=== PATIENT | female | born 1935 | race Caucasian/White ===

== ENCOUNTER 2022-02-08 07:39 | Day surgery (SDC) | payer OTHER, SELFPAY ==
[2022-02-02 10:46] VITALS: BMI 30.1
--- NOTE | 2022-02-04 12:50 | MHC.SHP ---
Pre-Procedural Eval Section A Date of Service: 02/04/22 The patient is an INPATIENT: No Changes since office visit: No Cold of Flu in the past 2 weeks, No New Medical Problems, No Changes in Medication and No Patient answered all questions The History & Physical has been completed within 30 days and I have reviewed it.: Yes Section B Chief Complaint: Age-related nuclear cataract, left eye Allergies: Allergies Allergy/AdvReac Type Severity Reaction Status Date / Time egg [EGG] Allergy Intermediate VOMITING Unverified 05/08/20 15:53 Penicillins [PENICILLINS] Allergy Intermediate RASH Unverified 05/08/20 15:53 Plan Diagnosis/Plan: Unchanged I have reviewed the history and physical and performed a pertinent physical examination on my patient. No changes have occurred unless specified.
--- NOTE | 2022-02-05 11:20 | P.CONAN_ITS ---
Documented by User: Denise Rojas NP 02/05/22 11:23 HPI - Anesthesia Eval Consult details Narrative: 86yo F for Left Cataract Extraction IOL Insertion PCP cleared No previous cataract on record [facility] Past Medical History Medical History (Updated 12/10/21 @ 08:45 by Alisa Matthews, [place]) Anemia CHF (congestive heart failure) COPD (chronic obstructive pulmonary disease) COVID-19 vaccine series completed Depression Fibromyalgia GERD (gastroesophageal reflux disease) Glaucoma Lung cancer Muscle weakness Osteoporosis Stress incontinence Urinary frequency Surgical History Surgical History (Updated 02/02/22 @ 10:45 by Alisa Matthews RN) H/O colonoscopy History of hip surgery History of open reduction and internal fixation (ORIF) procedure History of total left hip replacement Social History Social History Are you a primary health care coordinator to a significant other at home: No Do you presently have visiting nurse or other home services: Yes (Potential services/recent rehab @ [facility] 12/10/21) Patient Tobacco Use Status: Never used Tobacco Use of substances other than those prescribed or required for medical reasons: No Have you been hit, kicked, punched, or otherwise hurt by someone within the past year? If so, by whom?: No Are you DNR?: No Advance Directives: Yes Advance Directives Information Provided: Yes Advance Directives on File: Yes Advance Directives Date on File: 12/06/16 Recently lost weight without trying: No Eating poorly because of decreased appetite: No Nutrition Risks: Surgical patient >75years Poor oral hygiene: No Meds Allergies Allergy/AdvReac Type Severity Reaction Status Date / Time egg [EGG] Allergy Intermediate VOMITING Verified 02/08/22 09:32 Penicillins [PENICILLINS] Allergy Intermediate RASH Verified 02/08/22 09:32 Home Medications Medication Instructions Recorded Confirmed Last Taken Type acetaminophen 325 mg tablet 650 mg PO Q6H PRN Pain 12/10/21 02/02/22 Unknown History alendronate 70 mg tablet 70 mg PO QWEEK 12/10/21 02/02/22 Unknown History brimonidine 0.1 % eye drops 1 drp ophthalmic (eye) BID 12/10/21 02/02/22 Unknown History calcium carbonate 600 mg-vitamin 1 tab PO DAILY 12/10/21 02/02/22 Unknown History D3 5 mcg (200 unit) tablet cholecalciferol (vitamin D3) 25 25 mcg PO DAILY 12/10/21 02/02/22 Unknown History mcg (1,000 unit) capsule (Vitamin D3) cranberry 400 mg capsule 400 mg PO BID 12/10/21 02/02/22 Unknown History docusate sodium 100 mg capsule 100 mg PO BID 12/10/21 02/02/22 Unknown History fluticasone furoate 100 1 inh inhalation DAILY 12/10/21 02/02/22 Unknown History mcg-vilanterol 25 mcg/dose inhalation powder (Breo Ellipta) furosemide 20 mg tablet 20 mg PO DAILY PRN leg edema 12/10/21 02/02/22 Unknown History ipratropium 0.5 mg-albuterol 3 mg 3 ml inhalation Q6H PRN Shortness 12/10/21 02/02/22 Unknown History (2.5 mg base)/3 mL nebulization Of Breath soln magnesium oxide 400 mg PO DAILY 12/10/21 02/02/22 Unknown History melatonin 5 mg tablet 5 mg PO BEDTIME 12/10/21 02/02/22 Unknown History pantoprazole 40 mg tablet,delayed 40 mg PO DAILY 12/10/21 02/02/22 Unknown History release pregabalin 100 mg capsule 100 mg PO BID 12/10/21 02/02/22 Unknown History sertraline 150 mg capsule 150 mg PO DAILY 12/10/21 02/02/22 Unknown History tramadol 50 mg tablet 50 mg PO Q6H PRN Pain 12/10/21 02/02/22 Unknown History tramadol 50 mg tablet 75 mg PO QAM 12/10/21 02/02/22 Unknown History Exam Exam Date and Time: February 05, 2022 1120 Height,Weight and Vital Signs: Height 5 ft 3 in Weight 77.111 kg Narrative Narrative: Per clearance note: EKG 11/2021 NSR @ 73 Labs 01/13/22: Chem panel, liver panel, TSH all WNL Assessment and Plan Assessment Anesthesia Assessment: Chart Reviewed Documented by User: Anne Dukes MD 02/08/22 09:40 [facility] Past Medical History Medical History (Updated 12/10/21 @ 08:45 by Alisa Matthews RN) Anemia CHF (congestive heart failure) COPD (chronic obstructive pulmonary disease) COVID-19 vaccine series completed Depression Fibromyalgia GERD (gastroesophageal reflux disease) Glaucoma Lung cancer Muscle weakness Osteoporosis Stress incontinence Urinary frequency Family History Family history of problems with anesthesia: No Surgical History Surgical History (Updated 02/02/22 @ 10:45 by Alisa Matthews RN) H/O colonoscopy History of hip surgery History of open reduction and internal fixation (ORIF) procedure History of total left hip replacement History of Problems with Anesthesia: No Social History Social History Are you a primary health care coordinator to a significant other at home: No Do you presently have visiting nurse or other home services: Yes (Potential services/recent rehab @ [facility] 12/10/21) Patient Tobacco Use Status: Never used Tobacco Use of substances other than those prescribed or required for medical reasons: No Have you been hit, kicked, punched, or otherwise hurt by someone within the past year? If so, by whom?: No Are you DNR?: No Advance Directives: Yes Advance Directives Information Provided: Yes Advance Directives on File: Yes Advance Directives Date on File: 12/06/16 Recently lost weight without trying: No Eating poorly because of decreased appetite: No Nutrition Risks: Surgical patient >75years Poor oral hygiene: No Meds Allergies Allergy/AdvReac Type Severity Reaction Status Date / Time egg [EGG] Allergy Intermediate VOMITING Verified 02/08/22 09:32 Penicillins [PENICILLINS] Allergy Intermediate RASH Verified 02/08/22 09:32 Home Medications Medication Instructions Recorded Confirmed Last Taken Type acetaminophen 325 mg tablet 650 mg PO Q6H PRN Pain 12/10/21 02/02/22 Unknown History alendronate 70 mg tablet 70 mg PO QWEEK 12/10/21 02/02/22 Unknown History brimonidine 0.1 % eye drops 1 drp ophthalmic (eye) BID 12/10/21 02/02/22 Unknown History calcium carbonate 600 mg-vitamin 1 tab PO DAILY 12/10/21 02/02/22 Unknown History D3 5 mcg (200 unit) tablet cholecalciferol (vitamin D3) 25 25 mcg PO DAILY 12/10/21 02/02/22 Unknown History mcg (1,000 unit) capsule (Vitamin D3) cranberry 400 mg capsule 400 mg PO BID 12/10/21 02/02/22 Unknown History docusate sodium 100 mg capsule 100 mg PO BID 12/10/21 02/02/22 Unknown History fluticasone furoate 100 1 inh inhalation DAILY 12/10/21 02/02/22 Unknown History mcg-vilanterol 25 mcg/dose inhalation powder (Breo Ellipta) furosemide 20 mg tablet 20 mg PO DAILY PRN leg edema 12/10/21 02/02/22 Unknown History ipratropium 0.5 mg-albuterol 3 mg 3 ml inhalation Q6H PRN Shortness 12/10/21 02/02/22 Unknown History (2.5 mg base)/3 mL nebulization Of Breath soln magnesium oxide 400 mg PO DAILY 12/10/21 02/02/22 Unknown History melatonin 5 mg tablet 5 mg PO BEDTIME 12/10/21 02/02/22 Unknown History pantoprazole 40 mg tablet,delayed 40 mg PO DAILY 12/10/21 02/02/22 Unknown History release pregabalin 100 mg capsule 100 mg PO BID 12/10/21 02/02/22 Unknown History sertraline 150 mg capsule 150 mg PO DAILY 12/10/21 02/02/22 Unknown History tramadol 50 mg tablet 50 mg PO Q6H PRN Pain 12/10/21 02/02/22 Unknown History tramadol 50 mg tablet 75 mg PO QAM 12/10/21 02/02/22 Unknown History Exam Airway Mallampati Class: II TM Dist: >3cm Neck ROM: Full Assessment and Plan Assessment Anesthesia Assessment: Anesthesia Plan Discussed Final Anesthetic Review Family History of Problems with Anesthesia: No History of Problems with Anesthesia: No NPO: Yes ASA Class: II Final Preanesthetic Review: No Changes in Pt Med Stat, Meds/Allgs Chart Reviewed, Consent Obtained/Reviewed and Anes Risks/Benef Reviewed Patient Risk: Low Procedure Risk: Low Anesthetic Plan Anesthetic Plan: MAC: Disposition: Standard PACU
[2022-02-08 09:20] VITALS: BP 140/77; PULSE 71; RESP 16; TEMP 36.6; O2SAT 98
[2022-02-08] MEDS: Lactated Ringers 500 ML 50 ML IV (09:32)
[2022-02-08] MEDS: Tetracaine HCl/PF 0.5% Oph Sol 4 ML DROPS 1 DROP EYE-LEFT (09:34)
[2022-02-08] MEDS: Tropicamide 1 % Ophth Sol 3 ML BTL 1 DROP EYE-LEFT ×3 (09:35→09:41)
[2022-02-08] MEDS: Phenylephrine HCL 2.5% Oph SoL 2 ML BOTTLE 1 DROP EYE-LEFT ×3 (09:37→09:43)
--- NOTE | 2022-02-08 10:21 | HO.PNOPHT ---
Ophthalmology Procedure Procedure Date of Service: 02/08/22 Ophthalmology Viscoelastic: Healon Duet Dual Pack Pro Ophthalmology Lenses: TECCANDIDO [id number] (23) Procedure Notes: PREOPERATIVE DIAGNOSIS: Decreased visual acuity left eye secondary to cataract POSTOPERATIVE DIAGNOSIS: Same PROCEDURE: Left cataract extraction with intraocular lens insertion SURGEON: Alexis Mejia M.D. ANESTHESIA: Topical/MAC ESTIMATED BLOOD LOSS: None COMPLICATIONS: Poor dilation require synichilysis nwith placement of Malyugin ring After obtaining informed consent, the patient was brought to the operation room suite and placed in the supine position. After adequate sedation per anesthesia, topical drops of Tetracaine were given to the left eye. The eye was then prepped and draped in the usual sterile fashion. The operating room microscope was then positioned over the operative eye and a lid speculum placed. A paracentesis was created. MPFLidocaine 1%, 0.5 ml was instilled intracarmally Viscoelastic was then instilled into the anterior chamber. A three plane incisionwas then created temporally, utilizing a 2.85 mm keratome. A Malyugin Ring was the placed to expand the pupil.Capsulotomy forceps were then utilized to create a circular tear capsulotomy. Hydrodissection and hydrodelineation were carried out until adequate mobilization of the nucleus occurred. Phacoemulsification was then utilized to remove the dense central nucleus followed by removal of the cortical material utilizing the automated aspiration irrigation unit. Viscoat elastic was instilled into the posterior capsular bag followed by placement of a posterior chamber intraocular lens without difficulty. TheMalyugin Ring was removed. The residual Viscoat elastic was then removed utilizing the automated IA machine. The wound was check and found to be watertight. The patient tolerated the procedure well and the lid speculum was removed. Intracameral injection of Vigamox 0.1 mL followed by a subtenon injection of Kenalog-40 0.2 mL were administered. The patient will be seen in the a.m.
[2022-02-08 10:52] VITALS: BP 168/62; PULSE 83; RESP 16; TEMP 36.7; O2SAT 99
== END 2022-02-08 11:15 | disposition home or self-care (01) ==
PROVIDERS: Visit Provider Ophthalmology
PROC: (CPT 66985; principal; 2022-02-08 10:10)
DX: H59.88 Other intraoperative complications of eye and adnexa, not elsewhere classified (principal); H25.12 Age-related nuclear cataract, left eye; H21.562 Pupillary abnormality, left eye; H40.1130 Primary open-angle glaucoma, bilateral, stage unspecified; H35.343 Macular cyst, hole, or pseudohole, bilateral; H35.09 Other intraretinal microvascular abnormalities; H52.4 Presbyopia; Z83.511 Family history of glaucoma; D50.9 Iron deficiency anemia, unspecified; I50.9 Heart failure, unspecified; J44.9 Chronic obstructive pulmonary disease, unspecified; R60.0 Localized edema; M81.0 Age-related osteoporosis without current pathological fracture; Z79.51 Long term (current) use of inhaled steroids; Z79.899 Other long term (current) drug therapy; Z88.0 Allergy status to penicillin
CPT/HCPCS: 66982; J3010; J3300; V2632

== ENCOUNTER 2022-03-01 09:37 | Day surgery (SDC) | payer OTHER, SELFPAY ==
[2022-02-02 10:49] VITALS: BMI 30.1
--- NOTE | 2022-02-25 13:19 | MHC.SHP ---
Pre-Procedural Eval Section A Date of Service: 02/25/22 The patient is an INPATIENT: No Changes since office visit: No Cold of Flu in the past 2 weeks, No New Medical Problems, No Changes in Medication and No Patient answered all questions The History & Physical has been completed within 30 days and I have reviewed it.: Yes Section B Chief Complaint: Age-related nuclear cataract, right eye Allergies: Allergies Allergy/AdvReac Type Severity Reaction Status Date / Time egg [EGG] Allergy Intermediate VOMITING Verified 02/08/22 09:32 Penicillins [PENICILLINS] Allergy Intermediate RASH Verified 02/08/22 09:32 Plan Diagnosis/Plan: Unchanged I have reviewed the history and physical and performed a pertinent physical examination on my patient. No changes have occurred unless specified.
--- NOTE | 2022-02-26 09:20 | P.CONAN_ITS ---
Documented by User: Denise Rojas NP 02/26/22 09:21 HPI - Anesthesia Eval Consult details Narrative: 86yo F for Right Cataract Extraction IOL Insertion PCP cleared Left Cataract 02/08/22 with MAC: Fent 50 PMFSH Past Medical History Medical History Anemia CHF (congestive heart failure) COPD (chronic obstructive pulmonary disease) COVID-19 vaccine series completed Depression Fibromyalgia GERD (gastroesophageal reflux disease) Glaucoma Lung cancer Muscle weakness Osteoporosis Stress incontinence Urinary frequency Family History Family history of problems with anesthesia: No Surgical History Surgical History H/O colonoscopy History of hip surgery History of open reduction and internal fixation (ORIF) procedure History of total left hip replacement History of Problems with Anesthesia: No Social History Social History Are you a primary career development coordinator to a significant other at home: No Do you presently have visiting nurse or other home services: Yes ([facility]/recent rehab @ [facility] 12/10/21) Patient Tobacco Use Status: Never used Tobacco Use of substances other than those prescribed or required for medical reasons: No Have you been hit, kicked, punched, or otherwise hurt by someone within the past year? If so, by whom?: No Are you DNR?: No Advance Directives: Yes Advance Directives Information Provided: Yes Advance Directives on File: Yes Advance Directives Date on File: 12/06/16 Recently lost weight without trying: No Eating poorly because of decreased appetite: No Nutrition Risks: Surgical patient >75years Poor oral hygiene: No Meds Allergies Allergy/AdvReac Type Severity Reaction Status Date / Time egg [EGG] Allergy Intermediate VOMITING Verified 02/08/22 09:32 Penicillins [PENICILLINS] Allergy Intermediate RASH Verified 02/08/22 09:32 Home Medications Medication Instructions Recorded Confirmed Last Taken Type acetaminophen 325 mg tablet 650 mg PO Q6H PRN Pain 12/10/21 02/02/22 Unknown History alendronate 70 mg tablet 70 mg PO QWEEK 12/10/21 02/02/22 Unknown History brimonidine 0.1 % eye drops 1 drp ophthalmic (eye) BID 12/10/21 02/02/22 Unknown History calcium carbonate 600 mg-vitamin 1 tab PO DAILY 12/10/21 02/02/22 Unknown History D3 5 mcg (200 unit) tablet cholecalciferol (vitamin D3) 25 25 mcg PO DAILY 12/10/21 02/02/22 Unknown History mcg (1,000 unit) capsule (Vitamin D3) cranberry 400 mg capsule 400 mg PO BID 12/10/21 02/02/22 Unknown History docusate sodium 100 mg capsule 100 mg PO BID 12/10/21 02/02/22 Unknown History fluticasone furoate 100 1 inh inhalation DAILY 12/10/21 02/02/22 Unknown History mcg-vilanterol 25 mcg/dose inhalation powder (Breo Ellipta) furosemide 20 mg tablet 20 mg PO DAILY PRN leg edema 12/10/21 02/02/22 Unknown History ipratropium 0.5 mg-albuterol 3 mg 3 ml inhalation Q6H PRN Shortness 12/10/21 02/02/22 Unknown History (2.5 mg base)/3 mL nebulization Of Breath soln magnesium oxide 400 mg PO DAILY 12/10/21 02/02/22 Unknown History melatonin 5 mg tablet 5 mg PO BEDTIME 12/10/21 02/02/22 Unknown History pantoprazole 40 mg tablet,delayed 40 mg PO DAILY 12/10/21 02/02/22 Unknown History release pregabalin 100 mg capsule 100 mg PO BID 12/10/21 02/02/22 Unknown History sertraline 150 mg capsule 150 mg PO DAILY 12/10/21 02/02/22 Unknown History tramadol 50 mg tablet 50 mg PO Q6H PRN Pain 12/10/21 02/02/22 Unknown History tramadol 50 mg tablet 75 mg PO QAM 12/10/21 02/02/22 Unknown History Exam Exam Date and Time: February 26, 2022919 Height,Weight and Vital Signs: Height 5 ft 3 in Weight 77.111 kg Assessment and Plan Assessment Anesthesia Assessment: Chart Reviewed Final Anesthetic Review Family History of Problems with Anesthesia: No History of Problems with Anesthesia: No Documented by User: Nixon Zaman MD 03/01/22 11:59 PMFSH Past Medical History Medical History Anemia CHF (congestive heart failure) COPD (chronic obstructive pulmonary disease) COVID-19 vaccine series completed Depression Fibromyalgia GERD (gastroesophageal reflux disease) Glaucoma Lung cancer Muscle weakness Osteoporosis Stress incontinence Urinary frequency Surgical History Surgical History H/O colonoscopy History of hip surgery History of open reduction and internal fixation (ORIF) procedure History of total left hip replacement Social History Social History Are you a primary career development coordinator to a significant other at home: No Do you presently have visiting nurse or other home services: Yes ([facility] services/recent rehab @ [facility] 12/10/21) Patient Tobacco Use Status: Never used Tobacco Use of substances other than those prescribed or required for medical reasons: No Have you been hit, kicked, punched, or otherwise hurt by someone within the past year? If so, by whom?: No Are you DNR?: No Advance Directives: Yes Advance Directives Information Provided: Yes Advance Directives on File: Yes Advance Directives Date on File: 12/06/16 Recently lost weight without trying: No Eating poorly because of decreased appetite: No Nutrition Risks: Surgical patient >75years Poor oral hygiene: No Meds Allergies Allergy/AdvReac Type Severity Reaction Status Date / Time egg [EGG] Allergy Intermediate VOMITING Verified 02/08/22 09:32 Penicillins [PENICILLINS] Allergy Intermediate RASH Verified 02/08/22 09:32 Home Medications Medication Instructions Recorded Confirmed Last Taken Type acetaminophen 325 mg tablet 650 mg PO Q6H PRN Pain 12/10/21 02/02/22 Unknown History alendronate 70 mg tablet 70 mg PO QWEEK 12/10/21 02/02/22 Unknown History brimonidine 0.1 % eye drops 1 drp ophthalmic (eye) BID 12/10/21 02/02/22 Unknown History calcium carbonate 600 mg-vitamin 1 tab PO DAILY 12/10/21 02/02/22 Unknown History D3 5 mcg (200 unit) tablet cholecalciferol (vitamin D3) 25 25 mcg PO DAILY 12/10/21 02/02/22 Unknown History mcg (1,000 unit) capsule (Vitamin D3) cranberry 400 mg capsule 400 mg PO BID 12/10/21 02/02/22 Unknown History docusate sodium 100 mg capsule 100 mg PO BID 12/10/21 02/02/22 Unknown History fluticasone furoate 100 1 inh inhalation DAILY 12/10/21 02/02/22 Unknown History mcg-vilanterol 25 mcg/dose inhalation powder (Breo Ellipta) furosemide 20 mg tablet 20 mg PO DAILY PRN leg edema 12/10/21 02/02/22 Unknown History ipratropium 0.5 mg-albuterol 3 mg 3 ml inhalation Q6H PRN Shortness 12/10/21 0 02/02/22 Unknown History (2.5 mg base)/3 mL nebulization Of Breath soln magnesium oxide 400 mg PO DAILY 12/10/21 02/02/22 Unknown History melatonin 5 mg tablet 5 mg PO BEDTIME 12/10/21 02/02/22 Unknown History pantoprazole 40 mg tablet,delayed 40 mg PO DAILY 12/10/21 02/02/22 Unknown History release pregabalin 100 mg capsule 100 mg PO BID 12/10/21 02/02/22 Unknown History sertraline 150 mg capsule 150 mg PO DAILY 12/10/21 02/02/22 Unknown History tramadol 50 mg tablet 50 mg PO Q6H PRN Pain 12/10/21 02/02/22 Unknown History tramadol 50 mg tablet 75 mg PO QAM 12/10/21 02/02/22 Unknown History Exam Airway Mallampati Class: II TM Dist: >3cm Neck ROM: Full Loose/Missing/Broken Teeth: Yes (Poor dentitin, multiple chipped most notebly upper front teeth) Heart: [id number] Lungs: cta b/l Assessment and Plan Final Anesthetic Review ASA Class: III Final Preanesthetic Review: No Changes in Pt Med Stat, Meds/Allgs Chart Reviewed, Consent Obtained/Reviewed and Anes Risks/Benef Reviewed Patient Risk: Intermediate Procedure Risk: Low Assessment/Block/Sedation in SS: Assess/Block/Sedation-SS Anesthetic Plan Anesthetic Plan: MAC: and Agree w/ Assess. and Plan Disposition: Standard PACU
[2022-03-01 09:43] VITALS: BP 143/89; PULSE 78; RESP 18; TEMP 36.4; O2SAT 96
[2022-03-01] MEDS: Lactated Ringers 500 ML 50 ML IV (11:25)
[2022-03-01] MEDS: Cyclopentolate 1 % Ophth Sol 2 ML DRPBTL 1 DROP EYE-RIGHT ×3 (11:26→11:31)
[2022-03-01] MEDS: Tetracaine HCl/PF 0.5% Oph Sol 4 ML DROPS 1 DROP EYE-RIGHT (11:26)
[2022-03-01] MEDS: Tropicamide 1 % Ophth Sol 3 ML BTL 1 DROP EYE-RIGHT ×3 (11:26→11:32)
[2022-03-01] MEDS: Phenylephrine HCL 2.5% Oph SoL 2 ML BOTTLE 1 DROP EYE-RIGHT ×3 (11:27→11:31)
--- NOTE | 2022-03-01 12:49 | HO.PNOPHT ---
Ophthalmology Procedure Procedure Date of Service: 03/01/22 Ophthalmology Viscoelastic: Healjg Strongt Dual Pack Pro Ophthalmology Lenses: TECNIS [id number] (22.5) Procedure Notes: PREOPERATIVE DIAGNOSIS: Decreased visual acuity right eye secondary to cataract POSTOPERATIVE DIAGNOSIS: Same PROCEDURE: Right cataract extraction with intraocular lens insertion SURGEON: Alexis Mejia M.D. ANESTHESIA: Topical/MAC ESTIMATED BLOOD LOSS: None COMPLICATIONS: None After obtaining informed consent, the patient was brought to the operating room suite and placed in the supine position. After adequate sedation per anesthesia, topical drops of Tetracaine were given to the right eye. The eye was then prepped and draped in the usual sterile fashion. The operating room microscope was then positioned over the operative eye and a lid speculum placed. A paracentesis was created. Viscoelastic was then instilled into the anterior chamber. A three plane incision was then created temporally, utilizing a 2.85 mm keratome. Capsulotomy forceps were then utilized to create a circular tear capsulotomy. Hydrodissection and hydrodelineation were carried out until adequate mobilization of the nucleus occurred. Phacoemulsification was then utilized to remove the dense central nucleus followed by removal of the cortical material utilizing the automated aspiration irrigation unit. Viscoelastic was instilled into the posterior capsular bag followed by placement of a posterior chamber intraocular lens without difficulty. The residual Viscoelastic was then removed utilizing the automated IA machine. The wound was checked and found to be watertight. The patient tolerated the procedure well and the lid speculum was removed. Intracameral injection of Vigamox 0.1 mL followed by a subtenon injection of Kenalog-40 0.2 mL were administered. The patient will be seen in the a.m.
[2022-03-01 13:10] VITALS: BP 129/74; PULSE 67; RESP 16; TEMP 37.1; O2SAT 95
== END 2022-03-01 13:36 | disposition home or self-care (01) ==
PROVIDERS: Visit Provider Ophthalmology
PROC: (CPT 66985; principal; 2022-03-01 11:30)
DX: H25.11 Age-related nuclear cataract, right eye (principal); H52.4 Presbyopia; H40.1130 Primary open-angle glaucoma, bilateral, stage unspecified; H35.343 Macular cyst, hole, or pseudohole, bilateral; H35.09 Other intraretinal microvascular abnormalities; Z83.511 Family history of glaucoma; J44.9 Chronic obstructive pulmonary disease, unspecified; D50.9 Iron deficiency anemia, unspecified; Z88.0 Allergy status to penicillin; Z79.51 Long term (current) use of inhaled steroids; Z79.899 Other long term (current) drug therapy
CPT/HCPCS: 66984; J2250; J3010; J3300; V2632